=== PATIENT | female | born 1995 | race African-American/Black ===

== ENCOUNTER 2016-07-07 12:18 | Emergency (ER) | payer OTHER ==
[~2016-07-07] VITALS: Ht 162.6 cm; Wt 56.7 kg
[2016-07-07 12:22] VITALS: BP 122/71
[2016-07-07] MEDS ORDERED: MEDR1VL IM (12:25)
[2016-07-07] MEDS ORDERED: NAPR500T PO (13:12)
[2016-07-07] MEDS ORDERED: CYCL10TA PO (13:12)
== END 2016-07-07 13:36 | disposition home or self-care (01) ==
LOC: M ED 13:24
DX: S13.4XXA Sprain of ligaments of cervical spine, initial encounter (principal); S40.011A Contusion of right shoulder, initial encounter; V49.40XA Driver injured in collision with unspecified motor vehicles in traffic accident, initial encounter; Y92.410 Unspecified street and highway as the place of occurrence of the external cause; Y93.89 Activity, other specified; Y99.9 Unspecified external cause status